=== PATIENT | female | born 1970 | race Caucasian/White ===

== ENCOUNTER 2019-03-28 12:23 | Emergency (ER) | payer OTHER ==
[2019-03-28 12:33] VITALS: TEMP 98.9; BMI 32.5
[2019-03-28] MEDS ORDERED: predniSONE 20 MG TABLET (UD) PO ONE (12:40)
[2019-03-28] MEDS ORDERED: FAMOTIDINE 20 MG TABLET PO ONE (12:40)
--- NOTE | 2019-03-28 12:40 | PDOC ---
History of Present Illness - General Chief Complaint: Rash Stated Complaint: Rash Time Seen by Provider: 03/28/19 12:34 - History of Present Illness Initial Comments: 03/28/19 12:52 Chief complaint: Hives and itching HPI: Patient has had generalized urticaria for several weeks, the cause of which is unknown. In addition, she has had swelling of her hands and lips. She is under the care of a weigher and crusher, who is conducting tests for rheumatological disease. She has been taking only Benadryl, which does not seem to be effective. Hives are more widespread, covering her whole body, and there is intense burning and itching, especially at night. She is unaware of any precipitating factors including foods, cold, exercise, or stress. Review of systems: Denies fever/chills, URI symptoms, sore throat, cough, chest pain, shortness of breath, abdominal pain, nausea, vomiting, diarrhea, lightheadedness or dizziness, visual or focal neurologic symptoms, unsteadiness of gait, swelling of the throat, difficulty breathing or swallowing, noisy breathing, or wheezing. Remainder of systems reviewed and negative Past medical history: Denies high blood pressure, or other cardiac disease, diabetes, or other metabolic diseases, osteoporosis, or other bone diseases. Social history: Denies smoking, alcohol, or non-prescription drugs. Active and without disability Family history: Reviewed and noncontributory including hives, hereditary angioedema. Physical exam: Alert and oriented well-developed well-nourished, mild to moderate distress due to burning and itching of the skin. Cooperative Afebrile, vital signs normal PERRLA, fundi benign, ENT clear. Conjunctivae clear. Specifically, there is no angioedema of the posterior pharynx, uvula, tongue, or lips. Neck supple without bruit mass or nodes Lungs clear with full breath sounds bilaterally. No wheezes rales or rhonchi S1-S2 normal without murmur rub or gallop pulses full and symmetric no JVD or edema no bruits Abdomen nondistended. Bowel sounds normal. Soft without mass tenderness organomegaly Extremities: No CCE Skin: Generalized urticaria of the trunk and extremities. No facial edema or edema of the lips. No excoriations or other sign of superinfection. Impression: Idiopathic urticaria, persistent, worsening, interfering with sleep and normal activities Plan: H1 and H2 blockers, steroids in a tapering dose, close follow-up by weigher and crusher. Possible side effects of steroids including elevated blood pressure, diabetes, and weak bones was discussed with the patient, and she seems to understand that it is important to taper and discontinue the steroid dose as soon as possible as instructed by her weigher and crusher. She agrees to follow-up as directed in a timely fashion. Condition is improved upon discharge with to follow-up as directed. Past History - Past Medical History Allergies/Adverse Reactions: Allergies Allergy/AdvReac Type Severity Reaction Status Date / Time No Known Allergies Allergy Unverified 03/28/19 12:36 Home Medications: Ambulatory Orders Diphenhydramine [Benadryl -] 50 mg PO QID PRN #30 capsule 03/28/19 Famotidine [Pepcid] 20 mg PO BID #20 tablet 03/28/19 predniSONE [Deltasone -] 60 mg PO DAILY #40 tablet 03/28/19 COPD: No - Surgical History Appendectomy: Yes - Psycho Social/Smoking Cessation Hx Smoking History: Never smoked *Physical Exam - Vital Signs Last Vital Signs Temp Pulse Resp BP Pulse Ox 98.9 F 123 H 20 139/98 99 03/28/19 12:26 03/28/19 12:26 03/28/19 12:26 03/28/19 12:26 03/28/19 12:26 Medical Decision Making - Medical Decision Making 03/28/19 13:37 Patient much improved. Less erythematous. Urticaria seem to be regressing. Discussed the use of steroids, with the side effects emphasized, and the importance of tapering and eliminating as soon as possible. She agrees to consult her weigher and crusher within 5 days and receive a plan for further treatment. Discharge - Discharge Information Problems reviewed: Yes Clinical Impression/Diagnosis: Urticaria of entire body Condition: Improved Disposition: HOME - Admission No - Additional Discharge Information Prescriptions: Diphenhydramine [Benadryl -] 50 mg PO QID PRN #30 capsule PRN Reason: Hives, itching Famotidine [Pepcid] 20 mg PO BID #20 tablet predniSONE [Deltasone -] 60 mg PO DAILY #40 tablet - Follow up/Referral - Patient Discharge Instructions Patient Printed Discharge Instructions: DI for Hives Additional Instructions: You should consult your weigher and crusher as soon as possible for further instructions regarding tapering and discontinuing prednisone. As we discussed, prednisone can elevate blood pressure, cause or aggravate diabetes, and we can bones. The prescribed dose of 60 mg daily is a starting dose and should be continued no more than 5 days before further evaluation and recommendation by your weigher and crusher. Avoid hot baths and showers, as this can aggravate your hives. Bathe or shower in lukewarm water instead Moisturize your skin generally with a good quality skin moisturizer such as Eucerin several times daily, and especially after bathing or showering while your skin is still damp. - Post Discharge Activity
[2019-03-28] MEDS ORDERED: FAMOTIDINE 20 MG TABLET ONE (12:42)
[2019-03-28] MEDS ORDERED: predniSONE 20 MG TABLET (UD) ONE (12:48)
[2019-03-28 13:14] VITALS: BP 149/101; PULSE 94
== END 2019-03-28 13:43 | disposition home or self-care (01) ==
LOC: FER 12:23
PROC: 3E023GC Introduction of Other Therapeutic Substance into Muscle, Percutaneous Approach (ICD-10-PCS; principal; 2019-03-28)
DX: L50.9 Urticaria, unspecified (principal)
CPT/HCPCS: 99281-25

== ENCOUNTER 2019-05-27 09:00 | Emergency (ER) | payer OTHER ==
[2019-05-27 09:20] VITALS: BP 123/87; PULSE 96; TEMP 98.6; BMI 32.5
[2019-05-27] MEDS ORDERED: methylPREDNISolone NA SUCC 125 MG/2 ML VIAL IVPB ONE (09:20)
[2019-05-27] MEDS ORDERED: SODIUM CHLORIDE 1,000 ML IV STA (09:20)
--- NOTE | 2019-05-27 09:20 | PDOC ---
History of Present Illness - General Chief Complaint: Allergic Reaction Stated Complaint: ALLERGIC REACTION Time Seen by Provider: 05/27/19 09:06 History Source: Patient Exam Limitations: No Limitations - History of Present Illness Initial Comments: 48 yo F history of frequent allergic reactions presents with allergic reaction since yesterday. She has had hives, itching all over her body. Denies throat closing, SOB. She has been taking zyrtec without relief. She has not needed an epi pen. Past History - Past Medical History Allergies/Adverse Reactions: Allergies Allergy/AdvReac Type Severity Reaction Status Date / Time No Known Allergies Allergy Verified 05/27/19 09:08 Home Medications: Ambulatory Orders Cetirizine HCl [Zyrtec -] 20 mg PO ONCE 05/27/19 predniSONE [Deltasone -] 40 mg PO DAILY #8 tablet 05/27/19 COPD: No Other medical history: HIVES - Surgical History Abdominal Surgery: Yes (ABDOMINOPLASTY & BREAST REDUCTION 2002) Appendectomy: Yes (2018) - Psycho Social/Smoking Cessation Hx Smoking History: Never smoked Hx Alcohol Use: Yes (RARE) Drug/Substance Use Hx: No Review of Systems - Review of Systems Able to Perform ROS?: Yes Comments:: GENERAL/CONSTITUTIONAL: No fever or chills. No weakness. HEAD, EYES, EARS, NOSE AND THROAT: No change in vision. No ear pain or discharge. No sore throat. CARDIOVASCULAR: No chest pain or shortness of breath. RESPIRATORY: No cough, wheezing, or hemoptysis. GASTROINTESTINAL: No nausea, vomiting, diarrhea or constipation. GENITOURINARY: No dysuria, frequency, or change in urination. MUSCULOSKELETAL: No joint or muscle swelling or pain. No neck or back pain. SKIN: +Rash NEUROLOGIC: No headache, vertigo, loss of consciousness, or change in strength/ sensation. ENDOCRINE: No increased thirst. No abnormal weight change. HEMATOLOGIC/LYMPHATIC: No anemia, easy bleeding, or history of blood clots. ALLERGIC/IMMUNOLOGIC: No hives or skin allergy. *Physical Exam - Vital Signs Last Vital Signs Temp Pulse Resp BP Pulse Ox 98.6 F 96 H 16 123/87 99 05/27/19 09:02 05/27/19 09:02 05/27/19 09:02 05/27/19 09:02 05/27/19 09:02 - Physical Exam GENERAL: Awake, alert, and fully oriented, in no acute distress HEAD: No signs of trauma EYES: PERRLA, EOMI, sclera anicteric, conjunctiva clear ENT: Auricles normal inspection, hearing grossly normal, nares patent, oropharynx clear without exudates. Moist mucosa. No intraoral lesions. NECK: Normal ROM, supple, no lymphadenopathy, JVD, or masses LUNGS: Breath sounds equal, clear to auscultation bilaterally. No wheezes, and no crackles HEART: Regular rate and rhythm, normal S1 and S2, no murmurs, rubs or gallops ABDOMEN: Soft, nontender, normoactive bowel sounds. No guarding, no rebound. No masses EXTREMITIES: Normal range of motion, no edema. No clubbing or cyanosis. No cords, erythema, or tenderness NEUROLOGICAL: Cranial nerves II through XII grossly intact. Normal speech, normal gait. Motor and sensation intact SKIN: Warm, dry, normal turgor. +Urticarial rash to the trunk, limbs and face. Medical Decision Making - Medical Decision Making Pt with many prior similar reactions. She is under the care of a behavioral health rn and an senior capital markets specialist. Will DC when symptoms improve. Will give a short course of prednisone. 05/27/19 10:55 Significantly improved. Stable for DC home. Pt was provided with information for an elimination diet to try to identify any possible food triggers. Discharge - Discharge Information Problems reviewed: Yes Clinical Impression/Diagnosis: Urticaria of entire body Condition: Stable Disposition: HOME - Admission No - Additional Discharge Information Prescriptions: predniSONE [Deltasone -] 40 mg PO DAILY #8 tablet - Follow up/Referral - Patient Discharge Instructions Patient Printed Discharge Instructions: DI for Hives - Post Discharge Activity
[2019-05-27] MEDS ORDERED: methylPREDNISolone NA SUCC 125 MG/2 ML VIAL ONE (09:22)
== END 2019-05-27 11:37 | disposition home or self-care (01) ==
LOC: FER 09:00
PROC: 3E033GC Introduction of Other Therapeutic Substance into Peripheral Vein, Percutaneous Approach (ICD-10-PCS; principal; 2019-05-27)
DX: L50.9 Urticaria, unspecified (principal)
CPT/HCPCS: 99282-25; J7030